=== PATIENT | female | born 1985 | race Caucasian/White ===

== ENCOUNTER 2024-12-23 11:22 | Outpatient (REF) | payer OTHER, SELFPAY ==
[2024-12-23 18:11] LABS: Appearance Urine Clear; Glucose Urine UA Negative (Negative); PH 7.0 (5.0-9.0); Specific Gravity - Urine <= 1.005 (1.005-1.025)
[2024-12-23 18:12] LABS: MANUAL DIFF FLAG NO
[2024-12-23 18:20] LABS: Hematocrit 45.0 % (37.0-47.0); Hemoglobin 15.2 g/dl (12.0-16.0); Imm Gran Abs Auto 0.02 X10*3/uL (0.00-0.03); Imm Gran Pct Auto 0.3 % (0.0-0.4); Lymphocytes Absolute Auto 1.7 X10*3/uL (1.2-4.9); Mean Corpuscular HGB Conc 33.8 g/dl (31.0-35.0); Mean Corpuscular Hemoglobin 32.9 pg (27.0-33.0); Mean Corpuscular Volume 97.4 fL (80.0-98.0); NRBC Abs Auto 0.000 X10*3/uL (0.0-0.012); NRBC Pct Auto 0.0 /100WBC (0.0-0.2); Platelet Count 282 X10*3/uL (160-400); Red Blood Count 4.62 X10*6/uL (4.20-5.50); White Blood Count 6.2 X10*3/uL (4.8-10.8)
[2024-12-23 18:50] LABS: Albumin Level 5.1 g/dL (3.5-5.0); Anion Gap 11 (12-20); Calcium 9.7 mg/dL (8.4-10.2); Carbon Dioxide 26 mmol/L (22-29); Chloride 107 mmol/L (96-108); Cholesterol 211 mg/dL (<200); Potassium 4.5 mmol/L (3.3-5.1); Sodium 139 mmol/L (135-145); Total Protein 7.5 g/dL (6.5-8.0)
[2024-12-23 19:03] LABS: Folate 13.8 ng/mL (> or = 4.0); Vitamin B12 300 pg/mL (200-900)
[2024-12-23 19:08] LABS: Alanine Aminotransferase 22 U/L (0-31); Alkaline Phosphatase 76 U/L (39-117); Aspartate Amino Transferase 23 U/L (5-31); Blood Urea Nitrogen 11 mg/dL (9-16); Estimated Glomerular Filt Rate 57; HDL Cholesterol 46 mg/dL (>40); Magnesium 2.2 mg/dL (1.6-2.6); Triglycerides 73 mg/dL (<150)
--- OUTSIDE RECORDS SUMMARY | 2024-12-24 00:47 | XMS_ITS | Data Portability ---
Author Organization LUIS MANUEL Talamantes s, [address] Address [address] [place] [address] Assessment No assessment recorded. Plan of Treatment Reminders Order Date Submit Date Provider Last Modified By Organization Details Last Modified Time Details Appointments None recorded. Lab None recorded. Referral None recorded. Procedures None recorded. Surgeries None recorded. Imaging None recorded. Medication Orders cefdinir 300 mg capsule 2023 [facility] [address] [place], [address], 4 16:13:10 albuterol sulfate 2.5 mg/3 mL (0.083 %) solution for nebulizatio n 2023 024 Not available 4 08:42:59 ipratropium bromide 0.02 % solution for inhalation 2023 024 Not available 4 08:44:43 amoxicillin 875 mg-potassiu m clavulanate 125 mg tablet 2023 024 [facility] [address] [place], [address], 4 16:07:32 albuterol sulfate HFA 90 mcg/actuati on aerosol inhaler 2023 024 [facility] [address] [place], [address], 4 08:36:42 prednisone 20 mg tablet 2023 [facility] [address] [facility] [place], [address], 16:07:07 doxycycline hyclate 100 mg capsule 2023 024 [facility] [address] [facility] [place], [address], 08:38:12 Patient TargetsNo targets recorded. Patient Instructions Encounter Date Encounter Id Patient Instructions Last Modified By Organization Details Last Modified Time 08/02/2023 [id number] You can take ove r the counter tylenol or ibuprofen per package instructions for the pain. See printed instructions. Follow-up with your doctor if no improvement in 1 week. Seek Emergency Medical evaluation for any worsening symptoms. [email or web address] Not available 08/02/2023 10:20:48 08/24/2023 [id number] reactive airway disease: care instructions [email or web address] Not available 08/24/2023 08:36:33 08/28/2023 [id number] peak flow* [email or web address] Not available 08/07 08:54:25 Reason for Referral None Reported. Results Created Date Observation Date Name Description Value Unit Range Abnormal Flag Note LastModifiedBy Organization Detail LastModifiedTime 08/28/1908/28/2023 peak flow* Pre (L/min) 300 Not Available _ [facility] [address] [place], [address], 08/28/2023 08:27:31 08/28/19 24 08/28/2023 peak flow* Post (L/min) 375 Not Available [facility] [address] [place], [address], 08/28/2023 08:27:31 Result Notes None recorded. Problems Name Problem SNOMED Code Status Onset Date Resolution Date Notes Provider Name and Address Organization Details Recorded Time Mood disorder 46550219 Active LUIS MANUEL Hurley - [facility] 08:23:32 Exacerbatio n of intermitten t asthma 991942102 Active 2023 Milad Mauricio NP [address] [place], [address], [place] - [facility] 4 08:26:58 Acute serous otitis media of bilateral ears [id number] 107 Active 2023 Milad Mauricio NP [address] [place], [address], [place] - [facility] 4 08:28:30 Problem Notes None recorded. Medical Equipment None Reported. Allergies No known drug allergies Medications Name Sig Start Date Stop Date Status Note LastModified by Organization Details LastModified Time doxycycli ne hyclate 100 mg capsule TAKE 1 CAPSULE BY MOUTH TWICE DAILY WITH MEALS FOR 10 DAYS FOR PNEUMONI A 08/23 completed Not Available Not Available Not Available lamotrigi ne 200 mg tablet TAKE 1 TABLET BY MOUTH AT BEDTIME active Not Available Not Available No t Available albuterol sulfate 2.5 mg/3 mL (0.083 %) solution for nebulizat ion Inhale 2.5 mg every day by nebuliza tion route as directed for 1 day. 2023 active Billable unit is always one. Units are not the dose. Not Available Not Available Not Available prednison e 20 mg tablet 2 tabs a day for 4 days, 1 tab a day for 4 days 09/12 completed Not Available Not Available Not Available lithium carbonate ER 300 mg tablet,ex tended release TAKE 1 TABLET BY MOUTH AT BEDTIME active Not Available Not Available No t Available hydroxyzi ne HCl 50 mg tablet TAKE 1 TABLET BY MOUTH AT NIGHT active Not Available Not Available No t Available triamcino lone acetonide 0.1 % topical cream APPLY CREAM EXTERNAL LY TO AFFECTED AREA TWICE DAILY NEEDED FOR FLARES ECEZEMA PATCHES ON NECK,VEENA ST,ARMS DECREASE SYMPTOMS IMPROVE active Not Available Not Available No t Available lamotrigi ne 25 mg tablet TAKE 2 TABLETS BY MOUTH IN THE MORNING active Not Available Not Available No t Available propranol ol 10 mg tablet TAKE 1 TABLET BY MOUTH TWICE DAILY IN REPLACEM ENT OF PREVIOUS SCRIPT active Not Available Not Available No t Available benzonata te 100 mg capsule TAKE 1 CAPSULE BY MOUTH THREE TIMES DAILY NEEDED FOR COUGH 08/01 completed Not Available Not Available Not Available nitrofura ntoin macrocrys randolph 100 mg capsule TAKE 1 CAPSULE BY MOUTH AFTER SEXUAL INTERCOU RSE active Not Available Not Available No t Available hydrocort isone 2.5 % topical cream APPLY TOPICALL Y TO ECZEMA PATCHES ON FACE TWICE DAILY NEEDED FOR FLARES, DECREASE USE SYMPTONS IMPROVE 08/27 completed Not Available Not Available Not Available lorazepam 1 mg tablet TAKE 1 TABLET BY MOUTH ONCE DAILY NEEDED PANIC ATTACKS active Not Available Not Available No t Available albuterol sulfate HFA 90 mcg/actua tion aerosol inhaler Inhale 2 puffs every 4 hours by inhalati on route for 90 days. 2023 active Not Available Not Available Not Avai lable cefdinir 300 mg capsule Take 1 capsule every 12 hours by oral route for 10 days. 2023 active Not Available Not Available Not Avai lable ipratropi um bromide 0.02 % solution for inhalatio n Inhale 0.5 mg every day by inhalati on route as directed for 1 day. 2023 active Billable unit is always one. Units are not the dose. Not Available Not Available Not Available amoxicill in 875 mg-potass ium clavulana te 125 mg tablet Take 1 tablet every 12 hours by oral route with meal(s) for 10 days, for ear infectio n. 09/12 completed Not Available Not Available Not Available buspirone 15 mg tablet TAKE 1 TABLET BY MOUTH TWICE DAILY active Not Available Not Available No t Available buprenorp kassy HCl 2 mg sub[address] l tablet PLACE 2 TABLETS UNDER THE TONGUE ONCE DAILY active Not Available Not Available No t Available nitrofura ntoin monohydra te/macroc rystals 100 mg capsule TAKE 1 CAPSULE BY MOUTH BY MOUTH AFTER SEXUAL INTERCOU RSE active Not Available Not Available No t Available Vitals Date Recorded Body height Respiratory rate Body mass index (BMI) Body weight Heart rate Oxygen saturation Oxygen saturation in Arterial blood by Pulse oximetry Body temperature Systolic And Diastolic Provider Name and Address Organization Details Last Updated DateTime 4 172.72 cm 20 /min 26.6 kg/m2 80986.6 6 g 74 /min 93 % 93 % 98.3 [degF] 120/79 mm[Hg] Angela Harris PA - [facility] 4 09:37:18 Date Recorded Body height Body mass index (BMI) Body weight Respiratory rate Pain severity - 0-10 verbal numeric rating [Score] - Reported Body temperature Heart rate Oxygen saturation Oxygen saturation in Arterial blood by Pulse oximetry Systolic And Diastolic Provider Name and Address Organization Details Last Updated DateTime 4 172.72 cm 25.8 kg/m2 03255.7 g 17 /min 3 97.7 [degF] 78 /min 99 % 99 % 112/75 mm[Hg] Elva youngblood PA - [facility] 4 08:22:02 Date Recorded Body height Body mass index (BMI) Body weight Oxygen saturation Oxygen saturation in Arterial blood by Pulse oximetry Heart rate Body temperature Systolic And Diastolic Provider Name and Address Organization Details Last Updated DateTime 4 172.72 cm 25.8 kg/m2 26283.7 g 96 % 96 % 78 /min 98.5 [degF] 130/76 mm[Hg] Tayler Lira [place] - [facility] 4 08:11:27 Date Recorded Body height Body mass index (BMI) Body weight Oxygen saturation Oxygen saturation in Arterial blood by Pulse oximetry Pain severity - 0-10 verbal numeric rating [Score] - Reported Heart rate Respiratory rate Body temperature Systolic And Diastolic Provider Name and Address Organization Details Last Updated DateTime 4 172.72 cm 25.8 kg/m2 26758.7 g 98 % 98 % 0 78 /min 18 /min 98 [degF] 129/84 mm[Hg] Macie Duarte [place] - [facility] 4 16:05:30 Social History Question Answer Notes LastModified by Organizat ion Details LastModified Time Tobacco Smoking Status Never Smoker Angela kohli PA - [facility] 08/02/2023 09:35:33 Have You Had A Flu Shot This Season? Yes Information not available 08/24/2023 Have You Had Direct Contact, Or Contact During Intimacy, With Monkeypox Rash, Scabs, Or Body Fluids From A Person With Monkeypox? No Information not available 08/02/2023 What Was The Date Of Your Most Recent Tobacco Screening? 08/24/2023 Information not available 08/24/2023 What Is Your Relationship Status? Information not available 08/28/2023 Are You Passively Exposed To Smoke? No Information no t available 08/28/2023 Have You Recently Traveled Abroad? No Information not available 08/02/2023 Sex: Unknown Functional Status Question Answer Note LastModified by Organization D etails LastModified Time Do you or have you ever used any other forms of tobacco or nicotine? No Information not available 08/02/2023 What is your level of alcohol consumption? None Information not available 08/02/2023 Are you currently employed? Yes Information not available 08/28/2023 Mental Status None recorded. Family History Relationship Description Onset Age of this Age Resolved Age Notes LastModified by Organization Details LastModified Time Father No current problems or disability Not available 08/01 09:35:18 Mother No current problems or disability Not available 08/01 09:35:18 Medical History No medical history recorded. Gynecological History Statement/Question Response Date of LMP 09/09/2023 Is there any chance of ? No LMP Definite Obstetrics History GPAL:G 0 P 0 0 0 0 Past Encounters Encounter ID Performer Location Encounter Start Date Encounter Closed Date Diagnosis/Indication Diagnosis SNOMED-CT Code Diagnosis ICD10 Code Diagnosis IMO Codes Diagnosis Note [id number] [address] [address] [address] 06/09/2018 16:23:23 06/09/2018 17:20:50 [id number] [facility] [address] [address] 04/10/2017 13:11:35 04/10/2017 15:06:02 [id number] IVONNE AUGUSTINE MD [address] [address] 08/02/2023 09:09:46 08/02/2023 10:22:10 Community acquired pneumonia 606630798 J18.9 CoughBlack Elderberry Syrup:1-2 tsp 2-3 times a day for 5 days as needed for coughing.S ambucol Black Elderberry Original Syrup (available at [employer] )Ashley Herbs Black Elderberry Syrup, 5.4-Ounce Bottle (available at [employer] or [address]) Use a cool mist humidifier in the room that you sleep to add moisture to the air, which should soothe the airways and help loosen any mucus that may be present. [id number] [facility] MANUEL CANO [address] [facility] [address] [place] [address] 08/24/2023 08:07:09 08/24/2023 08:37:19 Bronchospasm 7303563 J98.01 [id number] [place] Maur[place] [address] [address] 08/28/2023 08:01:54 08/28/2023 08:56:01 Exacerbation of intermittent asthma 045933940 J45.21 How can you care for yourself at home?Follo w your Asthma Action Plan so you can manage your symptoms at home. An Asthma Action Plan will help you prevent and control airway reactions and will tell you what to do during an asthma attack. If you do not have an Asthma Action Plan, work with your doctor to build one.Take your asthma medicine exactly as prescribed . Medicine plays an important role in controllin g asthma. Talk to your doctor right away if you have any questions about what to take and how to take it.Use your quick-reli ef (rescue) medicine when you have symptoms of an asthma attack. Some people need to use quick-reli ef medicine before they exercise to prevent asthma symptoms. Salbutamol is a quick-reli ef medicine that is often used. In some cases, a certain type of controller inhaler is used as a quick-reli ef medicine. Ask your doctor what to use for quick relief.Mikhail e your controller (preventer ) every day, not just when you have symptoms. Controller medicine usually includes an inhaled corticoste roid. The goal is to prevent problems before they occur.If your doctor prescribed corticoste roid pills to use during an attack, take them as directed. They may take hours to work, but they may shorten the attack and help you breathe better.Natanael p your quick-reli ef medicine with you at all times.Talk to your doctor before using other medicines. Some medicines, such as aspirin, can cause asthma attacks in some people.Veena ck yourself for asthma symptoms to know which step to follow in your Asthma Action Plan. Watch for things like coughing, wheezing, being short of breath, and feeling tightness in your chest. Also notice if symptoms wake you up at night or if you get tired quickly when you exercise.I f you have a peak flow meter, use it to check for changes in your breathing. This can help you predict when an asthma attack is going to occur. Take your medicine as recommende d in your Asthma Action Plan to prevent asthma attacks or make them less severe.Randolph shen to your doctor about making regular appointmen ts. These visits will help you learn more about asthma and what you can do to control it. Your doctor will monitor your treatment to make sure the medicine is helping you. You should see your doctor about your asthma once or twice a year.Keep track of your asthma attacks and your treatment. After you have had an attack, write down what triggered it, what helped end it, and any concerns you have about your Asthma Action Plan. Take your diary when you see your doctor. You can then review your Asthma Action Plan and decide if it is working.Do not smoke or vape or allow others to smoke or vape around you. Avoid places where smoking and vaping are allowed. Smoking makes asthma worse. If you need help quitting, talk to your doctor about stop-smoki ng programs and medicines. These can increase your chances of quitting for good.Avoid smoke from forest fires.Lear n what triggers an asthma attack for you, and avoid the triggers when you can. Common triggers include colds, smoke, air pollution, dust, pollen, mould (including snow mould), pets, cockroache s, stress and other strong emotions, and cold air.Get a flu shot every year. Talk to your doctor about getting a pneumococc al vaccine shot. If you have had one before, ask your doctor whether you need a second dose. If you must be around people with colds or the flu, wash your hands often. Acute sero us otitis media of bilateral ears [id number] 087249 H65.03 You have been diagnosed with a Ear Infection Today. Suggestion s to help with your discomfort and recovery include:1. Laying the effected ear on a heating pad or applying a warm rice bag or something warm.2. Motrin and Tylenol Regularly - this will help with pain and inflammati on of the Eustachian Tube - this is very important for a speedy recovery.3 . Antihistam ine like Claritin/Z yrtec/Alfred gra/benadr yl - will help with congestion and swelling in the Eustachian Tube.4. Saline Nasal Spray5. Salt Water Gargle6. Staying Hydrated If you develop any of the following Symptoms I would be seen again:1. Fever > 101.02. Stiff Neck3. Swelling of the Lymph Nodes around the ear or neck4. Worsening Pain5. Bleeding from the Ear6. Severe Sore Throat Go Immediatel y to the ER if you develop1. Severe Headache2. Chest Pain3. Shortness of Breath. Antibiotic s typically take 4-5 days to start working so do the above to help with your symptoms. Probiotics are important while taking antibiotic s - I recommend Florastor Make sure you finish the full course of the antibiotic s - if you don't this can lead to antibiotic resistance . Thank you for using [facility] today - and don't hesitate to contact our office if you have any concerns or questions. [id number] LUIS MANUEL CANO [address] [place] [address] 09/13/2023 15:57:16 09/13/2023 16:13:40 Chronic purulent otitis media 50794419 H66.3X9 You have been diagnosed with a middle ear infection. You were prescribed antibiotic s to help clear that infection. Since this seems to be a chronic issue at this point, make sure to keep your appt with ENT this week Recommenda tions1. Use the medication s prescribed .2. Decongesta nts if tolerated, ibuprofen and acetaminop hen as needed3. Recommend recheck if fever develops or no improvemen t in 5-7 days.4. Have your ear rechecked in in 2 weeks with your primary provider to verify infection has resolved.5 . Use a cool mist humidifier in the room that you sleep to add moisture to the air, which should soothe the airways and help loosen any mucus that may be present. If you develop any of the following Symptoms I would be seen again - I would recommend the ER1. Fever > 101.02. Stiff Neck3. Pain in the skull behind the Ear.4. Worsening Pain5. Bleeding from the Ear6. Severe Sore Throat.7. Severe Headache Antibiotic s typically take 4-5 days to start working so do the above to help with your symptoms. Probiotics are important while taking antibiotic s - I recommend Florastor Make sure you finish the full course of the antibiotic s - if you don't this can lead to antibiotic resistance . Thank you for using [facility] today - and don't hesitate to contact our office if you have any concerns or questions. Health Concerns Section Related Observation LastModified by Organization Detai ls LastModified Time None Recorded Concern Status LastModified by Organization Details LastModified Time None Recorded Advance Directives Directive None Recorded Payers Insurance Date Sequence Insurance Name Policy Number Policy Arvizu Covered Member ID Arvizu Member ID Guarantor Name 09/13/2023 1 [facility] [id number] [place] [id number] [place] 08/02/2023 1 [facility] NET [employer] (MEDICAID HMO) [id number] [place] [id number] [place] Notes Date Note Type Note Provider Name and Address Organization Details Recorded Time 08/02/2023 text/html 38 yo female c/o 2 week hx of cough and was dx'd with bronchitis 2 weeks ago at another . She states that the cough has worsened over the last 2 days. She has been exposed to some one with pneumonia. No hx of Asthma. IVONNE AUGUSTINE MD [address] [place], [address], [place] - [facility] 08/02/2023 10:24:34 08/24/2023 text/html 38 y/o female herewith continuing cough after doxy for pneumonia. She is feeling better, but still having sinus congestion, ear pressure, and cough LUIS MANUEL Castro [address] [place], [address], [place] - [facility] 08/24/2023 08:49:27 08/28/2023 text/html Ear Pain Brief HPIReported by PatientHPIFor location, patient reportspain radiates to neckbut reportsbilateral(38 year old female comes in for bilateral ear pain more on the left side then right. congested cough related to her allergies and asthma exacerbation.). For quality, patient reportsaching painandsharp pain. For context, patient reportsrecent ear infection. For associated symptoms, patient reportscough,nasal congestion, andnasal discharge. For onset/timing, patient reportsstarted 3weeks ago,intermittent pain, andgradual onset. For duration, patient reportsoccurs dailyandsensation/epis ode variable length. For severity, patient reportsgetting worseandcurrent pain 5/10. For alleviating factors, patient reportsototopical antibiotics: ___andnasal steroid spray. For aggravating factors, patient reportssinus infections,allergies, andirrigation of ear. CongestionReported by Patientnasal congestion with post nasal drip x 3 days. denies nay fever or fever with chills. no SOB or respiratory distress. Milad Mauricio NP [address] [place], [address], [place] [facility] 08/28/2023 09:01:11 09/13/2023 text/html 38 y/o female here for her 2nd visit for ear pain. She was treated for otitis media 3 weeks ago, finished her amox-clav a week ago, and her symptoms restarted the day after she finished her meds.Continuing cough, congestion, sinus painHas an appt with ENT in 2 days LUIS MANUEL Castro [address] [place], [address], [place] [facility] 09/13/2023 16:16:14 OBGyn Episode No OBEpisode recorded.
--- OUTSIDE RECORDS SUMMARY | 2024-12-24 00:47 | XMS_ITS | Data Portability ---
Author Organization [place] - [facility], Allergy Address [address] [place] [phone] Care Team Providers Care Client Application Support Specialist Name Role Phone MIKEPACO PATRICIA Primary Care Provider Assessment Encounter Date Assessment Date Assessment LastModified by Organization Details LastModified Time 09/15/2023 09/15/2023 38 year old female with right sided pulsatile tinnitus. This appointment was initially scheduled for follow up for the tinnitus, but she has acute concerns today about bilateral ear blockage, discomfort and sinus pressure and congestion. On examination today she has serous effusions bilaterally, but some air bubbles are present. Nasal exam shows no obvious purulence or nasal polyps. Audiogram demonstrates hearing within normal limits with a mild conductive component bilaterally. Recommend extending her course of cefdinir and a second more appropriate course of prednisone. We reviewed side effects, and she does feel overall she tolerated them fine last time. Also suggest use of Afrin BID x 3 days and autoinsufflatio n. We will plan on follow up in four weeks or so. If fluid has not resolved we could consider myringotomy. Ultimately, she is interested in repeat allergy testing which we can certainly discuss. [email or web address] Not available 09/15/2023 12:05:38 10/19/2023 10/19/2023 On examination today she has persistent middle ear fluid. Audiogram still shows normal hearing with a mild conductive overlay. Given she is overall improving, I would recommend continued observation. We discussed adding azelastine for her congestion and allergies. She would like to try. Once these acute issues resolve we will refer for allergy testing. Follow up in two months. [email or web address] Not available 10/19/2023 17:01:35 12/19/2023 12/19/2023 On examination today the bilateral middle ear effusions have resolved. She is interested in allergy testing, so we will schedule this. She does take propranolol for anxiety, but she is down to just nightly dosing and feels she can easily stop for testing and subsequent immunotherapy if indicated. She has a mild asthma history, exacerbated by upper respiratory infections, but uses her albuterol inhaler rarely. She will follow up after the testing for review. [email or web address] Not available 12/19/2023 11:58:35 03/27/2024 03/27/2024 38-year-old female presents for right-sided ear foreign body removal. She reports earbud piece has been stuck in her ear for 2 days. Exam demonstrates plastic foreign body in the right external auditory canal, removed today. Canal with granulation tissue and limited otorrhagia. TMs are intact and well-aerated. No hearing concerns. Recommend topical CiproDex twice daily for 7 days. Patient will follow-up in 2 to 3 weeks for reevaluation in the [place] office. [email or web address] Not available 03/27/2024 10:58:31 Plan of Treatment Reminders Order Date Submit Date Provider Last Modified By Organization Details Last Modified Time Details Appointments None recorded. Lab None recorded. Referral None recorded. Procedures allergy testing, skin prick (PROC) 2023 024 [email or web address] Not available 4 11:09:14 intradermal allergy skin testing (PROC) 2023 024 [email or web address] Not available 4 11:09:14 pulmonary function test procedure (PROC) 2023 024 [email or web address] Not available 4 11:09:14 pulse oximetry (PROC) 2023 024 [email or web address] Not available 4 11:09:14 Surgeries None recorded. Imaging None recorded. Medication Orders Ciprodex 0.3 %-0.1 % ear drops,suspe nsion 2024 025 [facility], [address] [place], [address], 5 09:49:43 azelastine 137 mcg (0.1 %) nasal spray 2023 [facility] [address], [address] [facility] [place], [address], 12:58:10 cefdinir 300 mg capsule 2023 [facility] [address], [address] [place], [address], 11:49:59 prednisone 10 mg tablet 2023 [facility], [address] [place], [address], 11:51:57 Patient TargetsNo targets recorded. Patient InstructionsNo instructions recorded. Reason for Referral None Reported. Results Created Date Observation Date Name Description Value Unit Range Abnormal Flag Note LastModifiedBy Organization Detail LastModifiedTime 09/15/19 audio gram No observ ation record ed. [email or web address] Not Available 2023 16:03:21 09/27/1904/24/2023 imagi ng/di agnos tic resul t No observ ation record ed. [email or web address] Not Available 05:43:56 09/27/1910/03/2022 audio gram No observ ation record ed. [email or web address] Not Available 05:44:00 09/27/1910/03/2022 audio gram No observ ation record ed. [email or web address] Not Available 05:44:01 09/27/19 24 10/03/2022 audio gram No observ ation record ed. [email or web address] Not Available 05:44:02 09/27/19 24 10/03/2022 audio gram No observ ation record ed. [email or web address] Not Available 05:44:04 09/27/19 24 12/08/2022 imagi ng/di agnos tic resul t No observ ation record ed. [email or web address] Not Available 05:44:12 09/27/19 24 12/08/2022 imagi ng/di agnos tic resul t No observ ation record ed. [email or web address] Not Available 05:44:20 09/27/19 24 01/30/2020 imagi ng/di agnos tic resul t No observ ation record ed. [email or web address] Not Available 05:44:33 10/19/19 audio gram No observ ation record ed. [email or web address] Not Available 2023 15:52:35 Result Notes None recorded. Problems Name Problem SNOMED Code Status Onset Date Resolution Date Notes Provider Name and Address Organization Details Recorded Time Bilateral disorder of Eustachia n tubes 67177934308 06003 Active 2019 Other specified disorders of Eustachia n tube, bilateral ; Note: Date Diagnosed : 0 12:16 PM (H69.83) Not Available [facility] 4 03:06:17 Otalgia of right ear 6216439823 Active 2022 Otalgia, right ear; Note: Date Diagnosed : 07/25/2022 5:01 PM (H92.01) Not Available [facility] 4 03:06:18 Tinnitus of vascular origin 699734646 Active 2022 Pulsatile tinnitus, right ear; Note: Date Diagnosed : 07/25/2022 5:01 PM (H93.A1) Not Available [facility] 4 03:06:16 Acute serous otitis media of bilateral ears 19022998117 83588 Active 2023 Lisbeth kohli [place] - [facility] 4 12:00:51 Acute sinusitis 10039564 Active 2023 Lisbeth kohli [place] - [facility] 4 12:00:56 Allergic rhinitis 98991014 Active 2023 Lisbeth kohli [place] - [facility] 4 17:01:51 Perennial allergic rhinitis 585614011 Active 2023 Lisbeth kohli [place] - [facility] 4 11:58:19 Seasonal allergic rhinitis 612118027 Active 2023 Lisbeth kohli [place] - [facility] 4 11:58:39 Non-aller gic rhinitis 01120556382 1 Active 2023 Lisbeth kohli [place] - [facility] 4 11:58:39 Otorrhagi a of right ear 91400689981 47593 Active 2024 SHELBI GARZON PA-C [address] [facility] [address],[place] [address], [place], [address] , [facility] - [facility] 5 09:49:11 Foreign body in right ear 94774825004 850340 Active 2024 SHELBI GARZON PA-C [address],[place] [address], [place], [address] , [place] - [facility] 5 10:58:45 Problem Notes None recorded. Procedures Surgical History Date Name Laterality Status Provider Name and Address Organization Details Recorded Time 5 Removal of foreign body from ear canal completed SHELBI GARZON PA-C [address] [place] [address],[place] [address], [place], [address], [facility] - [facility] 03/27/2024 09:51:44 4 Comp Audio with Tymps - 96942 & 52518 completed AMINA CRUZ MA, CCC-A [address] [facility],[place] [address], [place], [address], [facility] - [facility] 10/19/2023 15:04:11 Imaging Results None recorded. Procedure Notes None recorded. Medical Equipment None Reported. Medications Name Sig Start Date Stop Date Status Note LastModified by Organization Details LastModified Time prednison e 10 mg tablet TAKE 3 TABLETS BY MOUTH ONCE DAILY FOR 3 DAYS THEN 2 ONCE DAILY FOR 3 DAYS THEN 1 ONCE DAILY FOR 3 DAYS 12/18 completed Not Available Not Available Not Available doxycycli ne hyclate 100 mg capsule TAKE 1 CAPSULE BY MOUTH TWICE DAILY WITH MEALS FOR 10 DAYS FOR PNEUMONI A 12/18 completed Not Available Not Available Not Available lamotrigi ne 200 mg tablet TAKE 1 TABLET BY MOUTH AT BEDTIME active Not Available Not Available No t Available cetirizin e 10 mg tablet 04/03 completed Medicati on ID: [id number] B rand Name: cetirizi ne Send Method: E-Prescr ibed Sub s Allowed: subs OK Speci al Instruct ion: TK 1 T PO D PRN FOR ITCHING FOR UP TO 14 DAYS. NOT FOR USE IN LACTATIO N Medica tionGene ricName: cetirizi ne Not Available Not Available Not Available valacyclo vir 1 gram tablet active Not Available Not Available Not Available metronida zole 0.75 % (37.5 mg/5 gram) vaginal gel 04/03 completed Medicati on ID: [id number] B rand Name: metronid azole Se nd Method: E-Prescr ibed Sub s Allowed: subs OK Medic ationGen ericName : metronid azole Not Available Not Available Not Available prednison e 20 mg tablet TAKE 2 TABLETS BY MOUTH ONCE DAILY FOR 4 DAYS THEN 1 ONCE DAILY FOR 4 DAYS 12/18 completed Not Available Not Available Not Available lithium carbonate ER 300 mg tablet,ex tended release TAKE 1 TABLET BY MOUTH ONCE DAILY active Not Available Not Available No t Available hydroxyzi ne HCl 50 mg tablet TAKE 1 TABLET BY MOUTH AT NIGHT active Not Available Not Available No t Available triamcino lone acetonide 0.1 % topical cream APPLY CREAM EXTERNAL LY TO AFFECTED AREA TWICE DAILY NEEDED FOR FLARES ECEZEMA PATCHES ON NECK,CLARK ST,ARMS DECREASE SYMPTOMS IMPROVE 12/18 completed Not Available Not Available Not Available amoxicill in 500 mg tablet 04/03 completed Medicati on ID: [id number] B rand Name: amoxicil mary Send Method: E-Prescr ibed Sub s Allowed: subs OK Medic ationGen ericName : amoxicil mary Not Available Not Available Not Available lithium carbonate ER 450 mg tablet,ex tended release TAKE 1 TABLET BY MOUTH ONCE DAILY AT BEDTIME 12/18 completed Not Available Not Available Not Available lamotrigi ne 25 mg tablet TAKE 2 TABLETS BY MOUTH IN THE MORNING 12/18 completed Not Available Not Available Not Available cefadroxi l 500 mg capsule 04/03 completed Medicati on ID: [id number] B rand Name: cefadrox il Send Method: E-Prescr ibed Sub s Allowed: subs OK Speci al Instruct ion: TK 1 C PO Q 12 H Medica tionGene ricName: cefadrox il Not Available Not Available Not Available propranol ol 10 mg tablet TAKE 1 TABLET BY MOUTH THREE TIMES DAILY active Not Available Not Available No t Available triamcino lone acetonide 0.025 % topical cream 12/18 completed Medicati on ID: [id number] B rand Name: triamcin olone acetonid e Send Method: E-Prescr ibed Sub s Allowed: subs OK Medic ationGen ericName : triamcin olone acetonid e Not Available Not Available Not Available benzonata te 100 mg capsule TAKE 1 CAPSULE BY MOUTH THREE TIMES DAILY NEEDED FOR COUGH 12/18 completed Not Available Not Available Not Available nitrofura ntoin macrocrys randolph 100 mg capsule TAKE 1 CAPSULE BY MOUTH AFTER SEXUAL INTERCOU RSE 12/18 completed Not Available Not Available Not Available hydrocort isone 2.5 % topical cream APPLY TOPICALL Y TO ECZEMA PATCHES ON FACE TWICE DAILY NEEDED FOR FLARES, DECREASE USE SYMPTONS IMPROVE 12/18 completed Not Available Not Available Not Available dextroamp hetamine- amphetami ne ER 10 mg 24hr capsule,e xtend release 12/18 completed Not Available Not Available Not Available lorazepam 1 mg tablet TAKE 1 TABLET BY MOUTH ONCE DAILY NEEDED FOR PANIC ATTACK active Not Available Not Available No t Available azelastin e 137 mcg (0.1 %) nasal spray Blanco 2 sprays twice a day by intranas al route for 30 days. 12/18 completed Not Available Not Available Not Available Cipro HC 0.2 %-1 % ear drops,rodney pension 04/03 completed Medicati on ID: [id number] B rand Name: Cipro HC Send Method: E-Prescr ibed Sub s Allowed: subs OK Speci al Instruct ion: SHAKE LQ AND INT 3 GTS IN AU BID FOR 7 DAYS Med icationG enericNa me: Cipro HC Not Available Not Available Not Available albuterol sulfate HFA 90 mcg/actua tion aerosol inhaler INHALE 2 PUFFS BY MOUTH EVERY 4 HOURS active Not Available Not Available No t Available norethind sang (contrace ptive) 0.35 mg tablet 04/03 completed Medicati on ID: [id number] B rand Name: chan dubois (contrac eptive) Send Method: E-Prescr ibed Sub s Allowed: subs OK Speci al Instruct ion: TK 1 T PO QD Medic ationGen ericName : norethin drone (contrac eptive) Not Available Not Available Not Available cefdinir 300 mg capsule TAKE 1 CAPSULE BY MOUTH EVERY 12 HOURS FOR 10 DAYS 12/18 completed Not Available Not Available Not Available amoxicill in 875 mg-potass ium clavulana te 125 mg tablet TAKE 1 TABLET BY MOUTH EVERY 12 HOURS WITH MEALS FOR 10 DAYS FOR EAR INFECTIO N 12/18 completed Not Available Not Available Not Available buspirone 15 mg tablet TAKE 1 TABLET BY MOUTH TWICE DAILY active Not Available Not Available No t Available neomycin- polymyxin -hydrocor t 3.5 mg-10,000 unit/mL-1 % ear drops,rodney p 04/03 completed Medicati on ID: [id number] B rand Name: neomycin -polymyx in-HC Se nd Method: E-Prescr ibed Sub s Allowed: subs OK Speci al Instruct ion: ADMINIST ER 3 DROPS IN TO EARS QID FOR 7 TO 10 DAYS Med icationG enericNa me: neomycin -polymyx in-HC Not Available Not Available Not Available Daily-Vit e tablet 04/03 completed Medicati on ID: [id number] B rand Name: Daily-Vi te Send Method: E-Prescr ibed Sub s Allowed: subs OK Josefai al Instruct ion: TK 1 T PO D Medica tionGene ricName: Daily-Vi te Not Available Not Available Not Available buprenorp kassy HCl 2 [address] l tablet PLACE 2 TABLETS UNDER THE TONGUE ONCE DAILY active Not Available Not Available No t Available ciproflox acin 0.3 %-dexamet hasone 0.1 % ear drops,rodney pension INSTILL 4 DROPS INTO AFFECTED EAR BY OTIC ROUTE 2 TIMES PER DAY FOR 7 DAYS active Not Available Not Available No t Available nitrofura ntoin monohydra te/macroc rystals 100 mg capsule TAKE 1 CAPSULE BY MOUTH BY MOUTH AFTER SEXUAL INTERCOU RSE active Not Available Not Available No t Available buprenorp kassy 2 mg-naloxo ne 0.5 mg sublingua l film active Not Available Not Available Not Available Stimulant Laxative Plus 8.6 mg-50 mg tablet 04/03 completed Medicati on ID: [id number] B rand Name: Stimulan t Laxative Plus Sen d Method: E-Prescr ibed Sub s Allowed: subs OK Speci al Instruct ion: TAKE 2 TABLETS BY MOUTH ONCE DAILY Me dication GenericN ortiz: Stimulan t Laxative Plus Not Available Not Available Not Available Vyvanse 10 mg capsule 04/03 completed Medicati on ID: [id number] B rand Name: Vyvanse Send Method: E-Prescr ibed Sub s Allowed: subs OK Speci al Instruct ion: TK 1 C PO QAM WHEN YOU HAVE TO WORK Med icationG enericNa me: Vyvanse Not Available Not Available Not Available Vitals Date Recorded Body height Body mass index (BMI) Body weight Provider Name and Address Organization Details Last Updated DateTime 03/27/2024 172.72 cm 25.8 kg/m2 58540.7 g Luly Boyce [place] - [facility] 03/27/2024 09:28:36 Date Recorded Body height Body mass index (BMI) Body weight Provider Name and Address Organization Details Last Updated DateTime 09/15/2023 172.72 cm 25.8 kg/m2 73471.7 g Erica Balderas [place] [facility] 09/15/2023 11:05:18 Date Recorded Body height Body mass index (BMI) Body weight Provider Name and Address Organization Details Last Updated DateTime 12/19/2023 172.72 cm 25.8 kg/m2 06051.7 g Luly Boyce [place] [facility] 12/19/2023 11:05:04 Social History None recorded. Functional Status None recorded. Mental Status None recorded. Family History Nothing Reported. Medical History No medical history recorded. Gynecological HistoryNo gynecological history recorded. Obstetrics History GPAL:G 0 P 0 0 0 0 Past Encounters Encounter ID Performer Location Encounter Start Date Encounter Closed Date Diagnosis/Indication Diagnosis SNOMED-CT Code Diagnosis ICD10 Code Diagnosis IMO Codes Diagnosis Note [id number] LISBETH DUQUE PA-C [facility] on [address] [place] [id number] 09/15/2023 10:53:44 09/15/2023 11:54:53 Tinnitus of vascular origin 403313140 H93.A1 Acute sero us otitis media of bilateral ears 7384979321 377651 H65.03 Acute sinusitis 50547393 J01.90 [id number] LISBETH DUQUE PA-C [facility] on [address] [place] [phone] 10/19/2023 14:28:40 10/19/2023 15:26:22 Bilateral disorder of Eustachian tubes 2931206301 146879 H69.83 Audiologic al evaluation results: Right ear: Normal hearing with conductive overlay with excellent word recognitio n. Left ear: Normal hearing with conductive overlay with excellent word recognitio n. Tympanomet ry: Right Ear:Type Cs Left Ear:Type Cs Acute sero us otitis media of bilateral ears 2219358604 375988 H65.03 Allergic rhinitis 429378 04 J30.9 [id number] LISBETH DUQUE PA-C [facility] on [address] [place] [phone] 12/19/2023 11:01:55 12/19/2023 11:56:57 Perennial allergic rhinitis 214190206 J30.89 Acute sero us otitis media of bilateral ears 7846926458 270167 H65.03 Allergic rhinitis 301696 04 J30.9 Non-allergic rhinitis 31 44428276 01 J31.0 Seasonal a llergic rhinitis 579557538 J30.2 [id number] SHELBI GARZON PA-C [facility] [address] [phone] 03/27/2024 09:08:26 03/27/2024 09:50:33 Otorrhagia of right ear 4805567689 371428 H92.21 Foreign hernandez dy in right ear 9934906104 0934517 T16.1XXA Health Concerns Section Related Observation LastModified by Organization Detai ls LastModified Time None Recorded Concern Status LastModified by Organization Details LastModified Time None Recorded Advance Directives Directive None Recorded Payers Insurance Date Sequence Insurance Name Policy Number Policy Arvizu Covered Member ID Arvizu Member ID Guarantor Name 09/15/2023 1 [facility] Elisabeth Park [id number] Elisabeth Park 03/27/2024 1 [facility] (O) [id number] Elisabeth Park [id number] Elisabeht Park 04/24/2024 1 [facility] (MEDICAID HMO) [id number] Elisabeth Park [id number] Elisabeth Park Notes Date Note Type Note Provider Name and Address Organization Details Recorded Time 09/15/2023 text/html ROS as noted in the HPI 38 year old female with right sided pulsatile tinnitus. She was unable to tolerate the MRI, CT angiogram was negative. Six month follow up with audiogram was recommended. The whooshing noise is still present and stable in her right ear, but she has more acute concerns today about ear blockage and congestion following a URI/pneumonia. URI symptoms started in mid July with a cough. On 08/01 she was diagnosed with pneumonia and treated with oral antibiotics. Symptoms improved to some degree but did not resolve, and she started to have more head congestion. She was seen again at Urgent Care on 08/23 for congestion, sinus pressure and ear pain. She was given steroids and an inhaler. She did not take the steroid regimen exactly as prescribed as she was worried about exacerbating her underlying mood disorder. She took 10mg x 2 days, then 40mg x 2 days, then 20mg x 2 days. A week later she had persistent sinus pressure and ear pain. She was seen again at Urgent Care and given antibiotics. On 09/12 she was seen by urgent care again for persistent right ear pain and placed on cefdinir for 10 days. Currently she still has ear pain, hearing loss, some sinus pressure and congestion.She is taking Claritin at night. She has been using a Navage twice daily and Flonase in the morning. History of recurrent infections as a child. Reports intermittent issues with sinus infections and ear infections as an adult. She had allergy shots in 2014 and did very well for about 5 years, but allergies have been bothering her more of late. Lisbeth kohli [place] - [facility] 09/15/2023 12:05:57 10/19/2023 text/html ROS as noted in the [facility] 38 year old female with right sided pulsatile tinnitus. She was unable to tolerate the MRI, CT angiogram was negative. She was a seen a month ago for her six month follow up audiogram, but had more acute concerns today about ear blockage and congestion following a URI/pneumonia. On exam she had bilateral middle ear effusions. It was recommended she continue Flonase and Zyrtec. Her antibiotic course was extended and she was given prednisone. She reports she is feeling much better. Her ears crackle and pop often, but she feels she is hearing better and they are not painful. ELISABETH HIGUERA MD [address] [facility],[address], [address], [facility] 10/25/2023 08:01:12 12/19/2023 text/html ROS as noted in the [facility] 38 year old female with right sided pulsatile tinnitus. She was unable to tolerate the MRI, CT angiogram was negative. She was a seen about 2-3 months ago for her six month follow up audiogram, but had more acute concerns about ear blockage and congestion following a URI/pneumonia. On exam she had bilateral middle ear effusions. It was recommended she continue Flonase and Zyrtec. Her antibiotic course was extended and she was given prednisone. At follow up she was improved, but still had a mild hearing loss and fluid in the ears. She continues to improve. She thinks she may sometimes still hear fluid in her ears when she bends forward. She tried adding azelastine to her allergy regimen, but did not like the taste. She has been taking her Flonase, Zyrtec and netipot. ELISABETH HIGUERA MD [address] [facility],[address], [address], [facility] 12/19/2023 12:30:48 03/27/2024 text/html ROS as noted in the [facility] 38-year-old female presents for removal of foreign body in right ear canal She reports plastic earbud piece has been stuck in her ear for 2 days. Urgent care trialed removing foreign body, but this induced significant ear pain. Denies ear drainage or hearing loss. IRAIS KIM MD [address] [place] [address], [place], [address], [facility] - [facility] 03/27/2024 17:40:03 OBGyn Episode No OBEpisode recorded.
[2024-12-24 02:45] LABS: CT PCR Urine NOT DETECTED (Not Detect.); NG PCR Urine NOT DETECTED (Not Detect.)
[2024-12-24 08:14] LABS: HBS Num1 178.34 mIU/mL (0-7.99); HBsAGNum1 0.32 S/CO (0.00-0.99); HIV Num 1 0.05 S/CO (0.00-0.99); Hepatitis B Surface Antigen Negative (Negative); ~HepC Num1 11.17 S/CO (0.00-0.79); ~Hepatitis B Surface Antibody REACTIVE (Nonreactive); ~Hepatitis C Antibody Reactive (Nonreactive)
[2024-12-24 08:33] LABS: Syphilis Screen Nonreactive (Nonreactive)
[2024-12-28 14:09] LABS: VITAMIN D (1,25 OH) D3 70 pg/mL; Vit D (1,25-Dihydroxy) Total 70 pg/mL (18-72); Vitamin D (1,25 OH) D2 <8 pg/mL
== END 2024-12-23 11:23 | disposition home or self-care (01) ==
LOC: HO.HKASLDS 11:22
PROVIDERS: PCP Student in an Organized Health Care Education/Training Program; Visit Provider Student in an Organized Health Care Education/Training Program
DX: Z13.9 Encounter for screening, unspecified (principal); F43.10 Post-traumatic stress disorder, unspecified; F31.9 Bipolar disorder, unspecified; F11.11 Opioid abuse, in remission; Z86.19 Personal history of other infectious and parasitic diseases; Z87.19 Personal history of other diseases of the digestive system; Z87.42 Personal history of other diseases of the female genital tract
CPT/HCPCS: 80053; 80061; 81003; 82607; 82652; 82746; 83036; 83735; 84443; 85025; 86706; 86780; 86803; 87340; 87389; 87491; 87591

== ENCOUNTER 2024-12-23 11:22 | Outpatient (AMB) | payer OTHER, SELFPAY ==
--- NOTE | 2024-12-23 11:24 | A.OFFPC_ITS ---
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 Crew Leader Required: No Accompanied by: Self / Same As Patient Allergies Seasonal Allergies Allergy (Intermediate, Verified 12/23/24 11:28) Nasal congestion Tobacco use date assessed: 12/23/24 Dental Screening Dental Screen Date: 12/23/24 Did you have a dental visit in the last 12 months?: No Did you have a dental problem in the last 6 months where you did not have access to dental care?: No Was dental information given to patient?: Patient has dentist HPI HPI Comments History of Present Illness Details History of Present Illness The patient is a 39-year-old female presenting to [facility] primary care for a comprehensive health assessment and preconception counseling. Psychiatric History: The patient has diagnoses of PTSD and bipolar disorder from her psychiatrist. She sees a therapist weekly. Opioid Use Disorder and Hepatitis C: The patient has a history of heroin and fentanyl abuse with at least one overdose. She was on Suboxone for 6.5 years and discontinued it in July of the previous year. She also has a history of Hepatitis C, which was treated with Harvoni in 2019 and has not resurfaced. Urological History: The patient has a lifelong history of chronic UTIs, for which she takes a single antibiotic pill for prophylaxis after intercourse. A urologist diagnosed her with interstitial cystitis after she presented with bladder pain and frequency over the past three years, which was investigated with a transvaginal ultrasound. Her bladder symptoms are reportedly under control when she eats well. Gastrointestinal History: The patient had surgery as a child in 1994 to correct reflux. She was diagnosed with IBS in her 20s, which was diarrhea-predominant, and later experienced constipation while on Suboxone. A few years ago, she had an episode of severe abdominal pain that led to an emergency room visit, where her small intestine was found to be inflamed. A subsequent colonoscopy ruled out Crohn's disease and ulcerative colitis but found one small polyp and a small hiatal hernia, necessitating colonoscopies every five years. Her GI symptoms are currently well-controlled with diet. ENT/Respiratory History: The patient reports allergies and sees an ENT for recurrent ear and sinus infections. She had pneumonia in 2023, followed by sinus and ear infections that lasted for months. As a child, she was told she had upper respiratory infection-induced asthma and currently uses an albuterol inhaler for a lingering cough, wheezing, and shortness of breath associated with colds or the flu. Gynecological History: The patient had an abnormal Pap smear with abnormal cells approximately two years ago, which led to a colposcopy. The colposcopy results were fine, but she is now due for a follow-up Pap smear. She is nulliparous and is considering p regnancy. Surgical History: - Anti-reflux surgery (1994) - [place] teeth removal - Colposcopy (~2 years ago) Medications: - Albuterol inhaler, as needed for cough and wheezing with colds, flu, or allergies - Vitamin D3, for preconception health - Coenzyme Q10, for preconception health - Allergy relief nasal spray - Hydroxyzine, for sleep - Lamotrigine, for psychiatric condition - [place], for psychiatric condition - Magnesium - Propranolol, for lithium-induced hand tremor - Unspecified antibiotic, one pill after intercourse for UTI prophylaxis Social History: - Occupation: The patient is a massage t herapist. - Substance Use: The patient denies curr ent use of tobacco, alcohol, or illicit drugs. - She has a history of heroin and fentan yl use and was on Suboxone for 6.5 year s, which she stopped in July of the prior year. - Family Planning: The patient has no ch ildren and is thinking about becoming . - Nutrition: The patient notes that her stomach and bladder symptoms are controlled when she eats well. Family History: - No family history was discussed. Diagnostic Results: - Labs: - Pap smear (approx. 2 years ago): Showe d abnormal cells. - Tests and Diagnostics: - Colposcopy (approx. 2 years ago): Find ings were fine. - Colonoscopy (date not specified): Foun d one small polyp and a small hiatal hernia; negative for Crohn's or ulcerative colitis. Past Medical History - Upper respiratory infection-induced as thma as a child - PTSD - Bipolar disorder - Gastroesophageal reflux as a child, s/ p surgical correction in 1994 - Chronic UTIs - Recurrent ear and sinus infections - Pneumonia in 2023 - Irritable bowel syndrome, diagnosed in her 20s - Colon polyp, found on colonoscopy - Small hiatal hernia - Hospitalization for inflamed small int estine - Opioid use disorder (heroin and fentan yl), with history of overdose - Abnormal Pap smear approx. 2 years ago - Interstitial cystitis - Hepatitis C, treated with Harvoni in 2 [facility] Health Maintenance - Cervical Cancer Screening: The patient had an abnormal Pap smear about two years ago, followed by a colposcopy that was fine. - She is due for a repeat Pap smear and was advised to follow up with an AUTOMATIC DISPENSER MECHANIC. - Colorectal Cancer Screening: The patie nt had a colonoscopy that found a small polyp and is scheduled for surveillance colonoscopies every five years. - Preconception Counseling: The patient is considering and is supplementing with vitamin D3 and coenzyme Q10 for preconception health. - She was advised that a vitami n containing folate would be sufficient. [facility] Medical History (Updated 12/23/24 @ 12:04 by James Medina MD) History of abnormal cervical Pap smear History of IBS History of hepatitis C virus infection History of opioid abuse Bipolar depression PTSD (post-traumatic stress disorder) Bilateral ureteral duplication Family History (Updated 12/23/24 @ 11:37 by Edmund Mcwilliams [facility]) Sister FH: mental illness Lupus Paternal Uncle FH: mental illness Brother Congenital heart defect Other Substance abuse Social History (Updated 12/23/24 @ 11:37 by Edmund Mcwilliams [facility]) Housing: Apartment Alcohol intake: never Patient Tobacco Use Status: Never used Tobacco e-Cigarette/Vaping Use: Never Used service: No Current occupational status: employed Current occupation: massage therapist Current occupational exposures/hazards: No Cognitive needs: No Hearing needs: No Vision needs: No Questionnaire PHQ-9 Over the last 2 weeks, how often have you been bothered by any of the following problems? 1. Little interest or pleasure in doing things: several days 2. Feeling down, depressed, or hopeless: several days 3. Trouble falling or staying asleep, or sleeping too much: more than half the days 4. Feeling tired or having little energy: several days 5. Poor appetite or overeating: several days 6. Feeling bad about yourself - or that you are a failure or have let yourself or your family down: more than half the days 7. Trouble concentrating on things, such as reading the newspaper or watching television: more than half the days 8. Moving or speaking so slowly that other people could have noticed. Or the opposite - being so fidgety or restless that you have been moving around a lot more than usual: not at all 9. Thoughts that you would be better off or of hurting yourself in some way: not at all Total score: 10 16898 - PHQ-9 Billing: Yes Source: Developed by Drs. Shukri Patel, Fouzia Richard, Jak Pope and colleagues, with an educational pedro from [employer]. Thrive Questionnaire Date Thrive assessed: 12/23/24 I am a: Patient What is your living situation today?: I have a steady place to live Within the past 12 months, did the food you bought not last and you didn't have the money to get more?: Never true Within the past 12 months, did you worry whether your food would run out before you got money to buy more?: Never true Do you have trouble paying for medicines?: No Do you have trouble getting transportation to medical appointments?: No Do you have trouble paying your heating and electricity bill?: No Do you have trouble taking care of your child, family member or friend?: No Do you have trouble with day-to-day activities such as bathing, preparing meals, shopping, managing finances, etc.?: No Are you currently unemployed and looking for a job?: No Are you interested in more education?: No Please select the resources that you would like help with: None Currently or been in a relationship where the following occur: I choose not to answer THRIVE Score: 0 AUDIT C Alcohol Use Questionnaire (AUDIT-C) 1. How often do you have a drink containing alcohol?: Never 3. How often do you have six or more drinks on one occasion?: Never Total Score: 0 MEENA-7 AMB Questionnaire MEENA-7 Date MEENA - 7 assessed: 12/23/24 Feeling nervous, anxious, or on edge: 2 = More than half the days Not being able to stop or control worryin = More than half the days Worrying too much about different things: 2 = More than half the days Trouble relaxin = More than half the days Being so restless that it is hard to sit still: 1 = Several days Becoming easily annoyed or irritable: 2 = More than half the days Feeling afraid as if something awful might happen: 2 = More than half the days Total MEENA-7 score (0-4 normal; 5-9 mild; 10-14 moderate; 15-21 severe): 13 Source: Developed by Drs. Shukri Patel, Fouzia Richard, Jak Pope and colleagues, with an educational pedro from [employer]. MEENA-7 Assessment Billing MEENA-7 Assessment Tool: MEENA-7 Assessment 46126 Review of Systems Narrative Review of Systems - Respiratory: Reports a lingering cough with wheezing and shortness of breath when she has a cold, flu, or severe allergies. - GI: Reports being a little more constipated but has daily bowel movements. - She notes her digestive health has improved since stopping Suboxone. - : Reports intermittent bladder irritation but it is mostly under control. 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 - Psychiatric/Constitutional: Reports feeling generally healthier with improved mood since stopping Suboxone. - Reports feeling sleepy, and sleep remains somewhat disrupted but is not ter rible. - Endocrine: Reports her menstrual cycles are less irregular since stopping Suboxone. 10-point ROS reviewed and negative except as noted in HPI Physical exam (Primary Care) Vital Signs: Last Vital Signs Temp 98.1 F 12/23/24 11:38 Pulse 56 12/23/24 11:38 Resp 17 12/23/24 11:38 BP 114/70 12/23/24 11:38 Pulse Ox 98 12/23/24 11:38 Oxygen Delivery Method Room Air 12/23/24 11:38 BMI result Body Mass Index 22.8 Tobacco/Smoking Status: Tobacco use Status Tobacco use date assessed 12/23/24 12/23/24 11:39 Patient Tobacco Use Status Never used Tobacco 12/23/24 11:39 e-Cigarette/Vaping Use Never Used 12/23/24 11:39 PHQ-9: PHQ-9 Score PHQ-9: Total score 10 12/23/24 11:40 Thrive Assessment: Date of Thrive Assessment Date Thrive assessed 12/23/24 12/23/24 11:27 Currently or been in a relationship where the following occur: I choose not to answer Narrative Physical Exam General: Well-appearing, in no acute distress. Vital signs: Within normal limits. HEENT: Normocephalic, atraumatic. PERRLA, EOMI. Conjunctiva clear, sclera anicteric. Oropharynx clear, mucous membranes moist. TMs intact bilaterally. Neck: Supple, no lymphadenopathy, no thyromegaly, no JVD or carotid bruits. Cardiovascular: RRR, normal S1/S2, no murmurs, rubs, or gallops. Peripheral pulses 2+ and symmetric. No edema. Respiratory: Lungs clear to auscultation bilaterally, no wheezes, rales, or rhonchi. Normal effort. Abdomen: Soft, non-tender, non-distended. Normoactive bowel sounds. No hepatosplenomegaly, no masses. Small hiatal hernia noted. MSK: Full range of motion, no joint swelling or deformity. Normal gait. Skin: Warm, dry, intact. No rashes, lesions, or pallor. Neuro: Alert and oriented x3. Cranial nerves II-XII intact. Strength 5/5 throughout. Sensation intact. Reflexes 2+ symmetric. Normal coordination and gait. Psych: Appropriate mood and affect. Normal judgment and insight. Diagnoses of PTSD and bipolar disorder noted. Coding Level of Care Code New Pt Level 4 (87954) Diagnoses PTSD (post-traumatic stress disorder) F43.10 Bipolar depression F31.9 History of opioid abuse F11.11 History of hepatitis C virus infection Z86.19 History of IBS Z87.19 History of abnormal cervical Pap smear Z87.42 Additional Codes MEENA-7 Assessment Billing - MEENA-7 Assessment Tool: MEENA-7 Assessment 12542 ([id number]) PHQ-9 - 83340 - PHQ-9 Billing: Yes ([id number]) Assessment & Plan Assessment & Plan (1) PTSD (post-traumatic stress disorder): Code(s): F43.10 - Post-traumatic stress disorder, unspecified Category: Medical (2) Bipolar depression: Code(s): F31.9 - Bipolar disorder, unspecified Category: Medical (3) History of opioid abuse: Code(s): F11.11 - Opioid abuse, in remission Category: Medical (4) History of hepatitis C virus infection: Code(s): Z86.19 - Personal history of other infectious and parasitic diseases Category: Medical (5) History of IBS: Code(s): Z87.19 - Personal history of other diseases of the digestive system Category: Medical (6) History of abnormal cervical Pap smear: Code(s): Z87.42 - Personal history of other diseases of the female genital tract Category: Medical Plan Consent The patient provided verbal consent to proceed with a comprehensive blood draw today after the plan was discussed. Patient was informed and verbally consented to the use of an ambient scribe for clinic note documentation during this visit. Plan 1. Health Maintenance And Preconception Counseling - A comprehensive lab panel will be ordered to establish a baseline of overall health, including a complete blood count, comprehensive metabolic panel, electrolytes, calcium, magnesium, B12, folate, vitamin D, thyroid function tests, hemoglobin A1c, and a lipid panel. - Infectious disease screening will be performed, including HIV, hepatitis B, and hepatitis C. - For preconception planning, it was recommended to take a vitamin containing folate. - The patient will follow up in two weeks to review all lab results. 2. History Of Abnormal Pap Smear - The patient is due for a repeat Pap smear and was advised to see an AUTOMATIC DISPENSER MECHANIC for follow-up. - A referral will be provided for an in-network AUTOMATIC DISPENSER MECHANIC if her current provider is no longer covered by her insurance. Discussion Notes I reviewed the patient's extensive medical and psychiatric history, as well as her current medications. We discussed her goal of establishing primary care and her interest in preconception planning. I explained the plan to order comprehensive lab work to get a baseline assessment of her overall health, and she agreed to the blood draw. I emphasized the importance of following up on her abnormal Pap smear from two years ago, advising her to see an AUTOMATIC DISPENSER MECHANIC soon and offering to provide a referral if needed. I recommended she take a vitamin with folate in preparation for a potential . I informed her that her physical exam was normal. We scheduled a follow-up appointment in two weeks to review her lab results and discuss next steps in her care. Patient Instructions - Please have your blood drawn today at the lab. - You are due for a repeat Pap smear. - Please check with your AUTOMATIC DISPENSER MECHANIC to see if they accept your new insurance plan. - If they do not, please let our office know so we can give you a referral to a new AUTOMATIC DISPENSER MECHANIC. - If you are trying to become , take a daily vitamin that contains folate. - Please schedule a follow-up appointment in two weeks to go over your lab results. Medical Decision Making The patient is a 39-year-old female with a complex medical history, including well-managed bipolar disorder and PTSD, opioid use disorder in remission, and treated Hepatitis C, who presents to [facility] care. The main goals of this visit are to perform a comprehensive health assessment and provide preconception counseling. Given her extensive history, multiple medications, and desire for , a comprehensive lab panel is warranted to establish a baseline. This includes a CBC, CMP to assess liver and kidney function, electrolytes, vitamin levels (B12, D, folate), TSH, HbA1c, and a lipid panel, as well as infectious disease screening (HIV, HBV, HCV) due to her history of IV drug use. An urgent health maintenance item is her overdue follow-up for an abnormal Pap smear; she was strongly advised to see an AUTOMATIC DISPENSER MECHANIC for a repeat Pap smear, and a referral will be facilitated as needed. Preconception counseling included the recommendation for folate supplementation via vitamins. Physical exam was unremarkable. A follow-up visit in two weeks will be critical for reviewing lab results and developing a long-term, integrated care plan. Total Time Statement 30 min Total time spent caring for the patient today includes pre-visit chart review, documentation, review of laboratory and diagnostic imaging results, medication reconciliation, medically necessary evaluation, counseling on diagnoses, care coordination, ordering appropriate tests and medications, review of tests performed by other providers, reporting test results to the patient, and communication with other healthcare providers. Orders: Orders Complete Blood Count Auto Diff Today Z13.9 - Encounter for screening, unspecif ied Hepatitis B Surface Antigen Today Z13.9 - Encounter for screening, unspecified TSH reflex Free T4 Today Z13.9 - Encounter for screening, unspecified UA CC w/rflx Micro + Cult Today Z13.9 - Encounter for screening, unspecified Lipid Panel Today Z13.9 - Encounter for screening, unspecified Magnesium Today Z13.9 - Encounter for screening, unspecified Hepatitis B Surface Antibody Today Z13.9 - Encounter for screening, unspecified Syphilis Screen Today Z13.9 - Encounter for screening, unspecified Comprehensive Met. Panel Today Z13.9 - Encounter for screening, unspecified Hepatitis C Antibody Today Z13.9 - Encounter for screening, unspecified CT NG by PCR Urine Today Z13.9 - Encounter for screening, unspecified HIV Ab/Ag Today Z13.9 - Encounter for screening, unspecified Vitamin B12 and Folate Today Z13.9 - Encounter for screening, unspecified Hemoglobin A1c Today Z13.9 - Encounter for screening, unspecified Vitamin D 1,25 dihydroxy Today Z13.9 - Encounter for screening, unspecified
[2024-12-23 11:38] VITALS: BP 114/70; PULSE 56; RESP 17; TEMP 36.7; O2SAT 98; BMI 22.8
== END 2024-12-23 12:02 | disposition home or self-care (01) ==
LOC: HO.HMCFMS 11:22
PROVIDERS: PCP Student in an Organized Health Care Education/Training Program; Visit Provider Student in an Organized Health Care Education/Training Program
DX: F43.10 Post-traumatic stress disorder, unspecified (principal); F31.9 Bipolar disorder, unspecified; F11.11 Opioid abuse, in remission; Z86.19 Personal history of other infectious and parasitic diseases; Z87.19 Personal history of other diseases of the digestive system; Z87.42 Personal history of other diseases of the female genital tract

== ENCOUNTER 2025-01-21 10:30 | Outpatient (AMB) | payer OTHER, SELFPAY ==
[2025-01-21 10:36] VITALS: BP 104/58; PULSE 49; TEMP 36.7; O2SAT 97; BMI 24.2
--- NOTE | 2025-01-21 10:36 | A.OFFPC_ITS ---
Vital Signs 01/21/25 10:36 Height 5 ft 8.2 in Weight 160 lb BMI 24.2 BP 104/58 L Blood Pressure Location Rt brachial Position Sitting Pulse 49 L Pulse Source Pulse Oximeter Temp 98.1 F Temp Source Oral Pulse Oximetry (%) 97 Oxygen Delivery Method Room Air Intake Visit Reasons: 2 wk - lab review Accompanied by: Self / Same As Patient Allergies Seasonal Allergies Allergy (Intermediate, Verified 01/21/25 10:37) Nasal congestion Medication List - Last Reconciled 01/21/25 by James Medina MD albuterol sulfate 90 mcg/actuation (Ventolin HFA) 2 puffs inhalation Q4-6H PRN cholecalciferol (vitamin D3) (D3-5000) 125 mcg PO DAILY coenzyme Q10 (H2Q CoQ10) mg PO fluticasone propionate 50 mcg/actuation (Allergy Relief (fluticasone)) 1 spray intranasal DAILY hydroxyzine HCl 50 mg PO BEDTIME lamotrigine 200 mg PO DAILY lamotrigine 50 mg PO DAILY lithium carbonate ER mg PO magnesium 200 mg PO DAILY propranolol 10 mg PO BID Tobacco use date assessed: 01/21/25 Dental Screening Dental Screen Date: 01/21/25 Did you have a dental visit in the last 12 months?: Yes HPI HPI Comments History of Present Illness Details History of Present Illness The patient is a 39 year old female presenting with follow-up to review lab results. Hyperlipidemia: The patient's fasting lab results show a total cholesterol of 211 mg/dL and an LDL cholesterol of 151 mg/dL, which is elevated. Her HDL cholesterol is within an acceptable range. She reports eating a very healthy diet, including large salads daily, fruits, vegetables, and fish, and avoids red meat and refined sugar. She acknowledges consuming cheese, which is a likely contributor to the elevated LDL. History of Hepatitis C: The patient has a history of treated hepatitis C. Her hepatitis C antibody test was positive, which is expected post-treatment. Mildly reduced kidney function: The patient's estimated glomerular filtration rate is noted to be slightly slow on recent labs. This is being monitored and is possibly related to her use of lithium. Preventative Care: The patient is due for a routine gynecological exam and Pap smear, as her last one was approximately two years ago. Medications: - Flanagan: Indication not specified; not ed as a possible cause for slightly slow kidney function. Social History: - Nutrition: The patient reports eating a very healthy diet, including a large salad daily with fruits and vegetables, and fish. - Dietary restrictions: She avoids red m eat and refined sugar. - Dietary habits: She consumes cheese, w hich she identifies as a comfort food, and has recently stopped eating sweets due to prior issues with bingeing on sugar. - Eating patterns: She generally does no t eat until around 2 PM. Diagnostic Results: - Complete blood count: Normal. - Chemistry panel: Sodium, potassium, an d other markers are normal. - Renal function: Estimated filtration r ate is slightly slow but not concerning at this time. - Glucose: Random glucose and hemoglobin A1c are normal, with no evidence of prediabetes or diabetes. - Electrolytes: Calcium and magnesium ar e good. - Liver function tests: Normal. - Lipid panel (fasting): Total cholester ol 211 mg/dL, Triglycerides good, LDL 15 1 mg/dL (high), HDL is okay. - Vitamin B12: 300 pg/mL (low-normal ran ge of 200-900 pg/mL). - Vitamin D: Good. - Folate: Good. - Thyroid function tests: Normal. - Urinalysis: Good. - STI screening: Syphilis and chlamydia negative. - Viral screening: Hepatitis B and HIV n egative. - Hepatitis C antibody: Positive (expect ed due to prior treatment). Past Medical History - Hepatitis C: Patient reports having be en treated. Health Maintenance - The patient is due for a routine gynec ological exam and Pap smear. - A referral will be placed to INSTRUMENT TECHNOLOGIST. - Instructed the patient to set up her [employer] portal access to view her results. [facility] Medical History (Updated 01/21/25 @ 12:48 by James Medina MD) Elevated serum cholesterol CKD stage 3a, GFR 45-59 ml/min Screening for malignant neoplasm of cervix Elevated LDL cholesterol level History of abnormal cervical Pap smear History of IBS History of hepatitis C virus infection History of opioid abuse Bipolar depression PTSD (post-traumatic stress disorder) Bilateral ureteral duplication Family History Sister FH: mental illness Lupus Paternal Uncle FH: mental illness Brother Congenital heart defect Other Substance abuse Social History Housing: Apartment Alcohol intake: never Patient Tobacco Use Status: Never used Tobacco e-Cigarette/Vaping Use: Never Used service: No Current occupational status: employed Current occupation: massage therapist Current occupational exposures/hazards: No Cognitive needs: No Hearing needs: No Vision needs: No Questionnaire PHQ-9 Over the last 2 weeks, how often have you been bothered by any of the following problems? 1. Little interest or pleasure in doing things: several days 2. Feeling down, depressed, or hopeless: several days 3. Trouble falling or staying asleep, or sleeping too much: more than half the days 4. Feeling tired or having little energy: several days 5. Poor appetite or overeating: several days 6. Feeling bad about yourself - or that you are a failure or have let yourself or your family down: more than half the days 7. Trouble concentrating on things, such as reading the newspaper or watching television: more than half the days 8. Moving or speaking so slowly that other people could have noticed. Or the opposite - being so fidgety or restless that you have been moving around a lot more than usual: not at all 9. Thoughts that you would be better off or of hurting yourself in some way: not at all Total score: 10 Depression Screening Interpretation: Positive Depression Screening Follow-up: Existing condition and In treatment Depression Screening Done: Yes 77488 - PHQ-9 Billing: Yes Source: Developed by Drs. Shukri Patel, Fouzia Richard, Jak Pope and colleagues, with an educational pedro from [employer]. Thrive Questionnaire Date Thrive assessed: 01/21/25 I am a: Patient What is your living situation today?: I have a steady place to live Within the past 12 months, did the food you bought not last and you didn't have the money to get more?: Never true Within the past 12 months, did you worry whether your food would run out before you got money to buy more?: Never true Do you have trouble paying for medicines?: No Do you have trouble getting transportation to medical appointments?: No Do you have trouble paying your heating and electricity bill?: No Do you have trouble taking care of your child, family member or friend?: No Do you have trouble with day-to-day activities such as bathing, preparing meals, shopping, managing finances, etc.?: No Are you currently unemployed and looking for a job?: No Are you interested in more education?: No Please select the resources that you would like help with: None Currently or been in a relationship where the following occur: I choose not to answer THRIVE Score: 0 AUDIT C Alcohol Use Questionnaire (AUDIT-C) 1. How often do you have a drink containing alcohol?: Never 3. How often do you have six or more drinks on one occasion?: Never Total Score: 0 MEENA-7 AMB Questionnaire MEENA-7 Date MEENA - 7 assessed: 01/21/25 Feeling nervous, anxious, or on edge: 2 = More than half the days Not being able to stop or control worryin = More than half the days Worrying too much about different things: 2 = More than half the days Trouble relaxin = More than half the days Being so restless that it is hard to sit still: 1 = Several days Becoming easily annoyed or irritable: 2 = More than half the days Feeling afraid as if something awful might happen: 2 = More than half the days Total MEENA-7 score (0-4 normal; 5-9 mild; 10-14 moderate; 15-21 severe): 13 Source: Developed by Drs. Shukri Patel, Fouzia Richard, Jak Pope and colleagues, with an educational pedro from [employer]. MEENA-7 Assessment Billing MEENA-7 Assessment Tool: MEENA-7 Assessment 43329 Review of Systems Narrative Review of Systems - General: Reports eating a healthy diet and avoiding refined sugars. - Psychiatric: Reports a history of binge eating and consuming a lot of sugar, which she has addressed. - All other systems reviewed and are negative. 10-point ROS reviewed and negative except as noted in HPI Physical exam (Primary Care) Vital Signs: Last Vital Signs Temp 98.1 F 01/21/25 10:36 Pulse 49 L 01/21/25 10:36 BP 104/58 L 01/21/25 10:36 Pulse Ox 97 01/21/25 10:36 Oxygen Delivery Method Room Air 01/21/25 10:36 BMI result Body Mass Index 24.2 Tobacco/Smoking Status: Tobacco use Status Tobacco use date assessed 01/21/25 01/21/25 10:38 Patient Tobacco Use Status Never used Tobacco 01/21/25 10:36 e-Cigarette/Vaping Use Never Used 01/21/25 10:36 PHQ-9: PHQ-9 Score PHQ-9: Total score 10 01/21/25 10:39 Depression Screening Interpretation: Positive Depression Screening Follow-up: Existing condition and In treatment Thrive Assessment: Date of Thrive Assessment Date Thrive assessed 01/21/25 01/21/25 10:38 Currently or been in a relationship where the following occur: I choose not to answer Narrative Physical Exam General: Well-appearing, in no acute distress. Vital signs: Within normal limits. HEENT: Normocephalic, atraumatic. PERRLA, EOMI. Conjunctiva clear, sclera anicteric. Oropharynx clear, mucous membranes moist. TMs intact bilaterally. Neck: Supple, no lymphadenopathy, no thyromegaly, no JVD or carotid bruits. Cardiovascular: RRR, normal S1/S2, no murmurs, rubs, or gallops. Peripheral pulses 2+ and symmetric. No edema. Respiratory: Lungs clear to auscultation bilaterally, no wheezes, rales, or rhonchi. Normal effort. Abdomen: Soft, non-tender, non-distended. Normoactive bowel sounds. No hepatosplenomegaly, no masses. MSK: Full range of motion, no joint swelling or deformity. Normal gait. Skin: Warm, dry, intact. No rashes, lesions, or pallor. Neuro: Alert and oriented x3. Cranial nerves II-XII intact. Strength 5/5 throughout. Sensation intact. Reflexes 2+ symmetric. Normal coordination and gait. Psych: Appropriate mood and affect. Normal judgment and insight. Office Procedures Flu Questionnaire Does the patient have a severe egg allergy?: No Does the patient have severe life threatening allergies?: No Does the patient have a fever or illness today?: No Has the patient ever had Guillain-Denair Syndrome?: No Has the patient ever had any past reaction to a flu shot?: No Immunizations Fluarix [id number] (PF) 45 mcg (15 mcg x 3)/0.5 mL IM syringe Performing Provider: James Medina MD Performing [place] [facility] Documented (not given) by: Camille Gandhi CMA on 01/21/25 10:38 Reason Not Given: Received Previously Coding Level of Care Code Est Pt Level 3 (40889) Add On Problem Visit Only Diagnoses Elevated LDL cholesterol level E78.00 History of hepatitis C virus infection Z86.19 CKD stage 3a, GFR 45-59 ml/min N18.31 Elevated serum cholesterol E78.00 Additional Codes MEENA-7 Assessment Billing - MEENA-7 Assessment Tool: MEENA-7 Assessment 02797 ([id number]) PHQ-9 - 17918 - PHQ-9 Billing: Yes ([id number]) Assessment & Plan Assessment & Plan (1) Elevated LDL cholesterol level: Code(s): E78.00 - Pure hypercholesterolemia, unspecified Category: Medical (2) History of hepatitis C virus infection: Code(s): Z86.19 - Personal history of other infectious and parasitic diseases Category: Medical (3) CKD stage 3a, GFR 45-59 ml/min: Code(s): N18.31 - Chronic kidney disease, stage 3a Category: Medical (4) Elevated serum cholesterol: Code(s): E78.00 - Pure hypercholesterolemia, unspecified Category: Medical Plan Consent The patient verbally consented to a referral to a registered dietitian for nutritional counseling over the phone. The patient also verbally consented to a referral to a office spec for a routine Pap smear as it has been two years. Patient was informed and verbally consented to the use of an ambient scribe for clinic note documentation during this visit. Plan 1. Hyperlipidemia - The patient's LDL cholesterol is elevated at 151 mg/dL, with a target of less than 100 mg/dL. - Counseled the patient that cheese consumption is a likely contributor to her high LDL cholesterol. - Recommended reducing cheese and egg intake to lower LDL levels. - Placed a referral for a implementation project manager to contact the patient by phone to provide further nutritional guidance. 2. Mildly Reduced Kidney Function - The patient's estimated filtration rate is slightly slow, possibly secondary to lithium use. - Reassured the patient that this is not currently a cause for concern, as other kidney markers are normal. - Plan to continue monitoring renal function. 3. Low Normal Vitamin B12 - The patient's Vitamin B12 level is 300 pg/mL, which is in the lower end of the normal range. - Advised the patient that she can supplement with [id number] Vitamin B12 if she wishes. Discussion Notes I reviewed the lab results with the patient. I explained that while most results were normal, her LDL cholesterol was elevated at 151 mg/dL, against a goal of under 100. We discussed that her diet, specifically her cheese intake, is the likely cause. I offered and she agreed to a referral to a implementation project manager for further counseling. I also noted her slightly slow kidney filtration rate, which I am monitoring and believe may be related to her lithium use, but is not concerning at present. I advised her that her Vitamin B12 level was on the low end of normal and that she could take an [id number] supplement if she chooses. At her request, I am placing a referral to INSTRUMENT TECHNOLOGIST for a routine exam and Pap smear, as it has been two years since her last screening. I provided instructions on how to follow up with the INSTRUMENT TECHNOLOGIST office if she does not hear from them within one to two weeks. I also instructed her on setting up her patient portal account to access her results and health information. Patient Instructions - Your lab results were mostly normal. - Your bad LDL cholesterol is a bit high. To help lower it, try to cut down on foods high in fat like cheese. - A registered dietitian will call you to talk more about healthy eating options. - Your vitamin B12 level is a little low. You can take an [id number] vitamin B12 supplement if you'd like. - We have sent a referral to a office spec for your routine check-up. Their office should contact you to schedule an appointment. - If you don't hear from the office spec's office in a week or two, please call the [facility] and ask to be connected to the INSTRUMENT TECHNOLOGIST department. - Please set up your online patient portal. Our staff will give you the information you need to sign up. This will let you see your test results and medical information online. Medical Decision Making The patient, a 39-year-old female, presented for a review of her recent lab work. The primary abnormal finding was an elevated LDL cholesterol of 151 mg/dL. Given her reported diet is otherwise healthy and notable for avoidance of red meat and refined sugars, her admitted intake of cheese is the most likely cause for this hyperlipidemia. Management at this stage will focus on dietary modification. I have referred her to a implementation project manager for additional counseling to support these lifestyle changes. Her slightly slow estimated filtration rate is noted; however, it is not clinically significant at this time, with all other renal markers being normal, and is likely a side effect of lithium. I will continue to monitor this. The patient is also due for routine health maintenance, specifically a Pap smear. A referral to INSTRUMENT TECHNOLOGIST has been placed as per her request. All other labs, including CBC, metabolic panel, and infectious disease screening, were reassuringly normal. Total Time Statement 20 min Total time spent caring for the patient today includes pre-visit chart review, documentation, review of laboratory and diagnostic imaging results, medication reconciliation, medically necessary evaluation, counseling on diagnoses, care coordination, ordering appropriate tests and medications, review of tests performed by other providers, reporting test results to the patient, and communication with other healthcare providers. Orders: Orders Influenza [id number] Immunization Today Z23 - Encounter for immunization Referrals INSTRUMENT TECHNOLOGIST Referral Z12.4 - Encounter for screening for malignant neoplasm of cervix Nurse Navigator Referral E78.00 - Pure hypercholesterolemia, unspecified
== END 2025-01-21 11:01 | disposition home or self-care (01) ==
LOC: HO.HMCFMS 10:31
PROVIDERS: PCP Student in an Organized Health Care Education/Training Program; Visit Provider Student in an Organized Health Care Education/Training Program
DX: E78.00 Pure hypercholesterolemia, unspecified (principal); Z86.19 Personal history of other infectious and parasitic diseases; N18.31 Chronic kidney disease, stage 3a; Z23 Encounter for immunization

== ENCOUNTER → 2025-01-21 10:30 | Outpatient (BNVA) | payer OTHER, SELFPAY | PROVIDERS: Visit Provider Student in an Organized Health Care Education/Training Program | DX: E78.00 Pure hypercholesterolemia, unspecified (principal); N18.31 Chronic kidney disease, stage 3a; Z86.19 Personal history of other infectious and parasitic diseases | CPT/HCPCS: 90471; 96127; 99212 ==